=== PATIENT | female | born 1980 | race American Indian/Alaskan Native ===

== ENCOUNTER 2016-11-25 08:32 | Emergency (ER) | payer SELFPAY ==
[2016-11-25 12:32] LABS: Bacteria,Urine 1+ /HPF (Negative); Bilirubin,Urine NEG (Negative); Blood,Urine MOD (Negative); Ketones,Urine NEG (Negative); Leukocyte Esterase,Urine NEG (Negative); Mucus,Urine FEW /HPF; Nitrite,Urine NEG (Negative); Protein,Urine <15 mg/dL mg/dL (Negative); Urobilinogen,Urine < 2.0 mg/dL (<2.0)
--- NOTE | 2016-11-25 12:37 | Emergency Department Report ---
HPI - General Chief Complaint: Abdominal Pain Time Seen by Provider: 11/25/16 11:38 - HPI HPI: Patient with abdominal cramping, constipation for the past 3 weeks. Has been taking [id number] medication without relief. Patient also complained of runny nose, cough, feeling congested. Took some NyQuil and now feeling dizzy, weak. Patient denies any fever, chills, night sweats. Patient states her menstrual cycle have been regular and she had one this month. 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 - Surgical History Past Surgical History?: Yes Additional Surgical History: R knee - Social History Smoking Status: Former Smoker Substance Use Type: Alcohol - Medications Home Medications: Home Medications Medication Instructions Recorded Confirmed Last Taken Type Clindamycin [Clindamycin CAP] mg PO BID 07/02/15 Unknown History Nitrofurantoin [place]/M-Cryst 100 mg PO Q12HR 07/02/15 07/02/15 Unknown History [Macrobid CAP] Ondansetron [Zofran Odt] mg PO BID 07/02/15 Unknown History Ferrous Gluconate [Fergon 325 MG 325 mg PO BID #10 tablet 07/07/15 Unknown Rx tab] Sulfamethoxazole/Trimethoprim 1 each PO BID #10 tablet 07/07/15 Unknown Rx [Bactrim DS TAB] Dicyclomine [Bentyl] 10 mg PO QID #20 capsule 11/25/16 Unknown Rx ED Review of Systems ROS: Stated complaint: ABD PAIN Other details as noted in HPI Comment: All other systems reviewed and negative Respiratory: no symptoms reported Gastrointestinal: abdominal pain, other (constipation) Physical Exam - Physical Exam Vital Signs: Vital Signs 11/25/16 11/25/16 08:42 12:04 Temperature 98.4 F Pulse Rate 73 Respiratory 18 18 Rate Blood Pressure 137/86 O2 Sat by Pulse 99 Oximetry Physical Exam: Physical Exam: - General Limitations: No Limitations General appearance: alert, in no apparent distress - Head Head exam: Present: atraumatic, normocephalic - Eye Eye exam: Present: normal appearance - ENT ENT exam: Present: mucous membranes moist - Neck Neck exam: Present: normal inspection - Respiratory Respiratory exam: Present: normal lung sounds bilaterally. Absent: respiratory distress - Cardiovascular Cardiovascular Exam: Present: normal rhythm, tachycardia. Absent: systolic murmur, diastolic murmur, rubs, gallop - GI/Abdominal GI/Abdominal exam: Present: soft, normal bowel sounds - Extremities Exam Extremities exam: Present: normal inspection - Back Exam Back exam: Present: normal inspection - Neurological Exam Neurological exam: Present: alert, oriented X3, - Skin Skin exam: Present: warm, dry, intact, normal color. Absent: rash ED Course Vital Signs 11/25/16 11/25/16 08:42 12:04 Temperature 98.4 F Pulse Rate 73 Respiratory 18 18 Rate Blood Pressure 137/86 O2 Sat by Pulse 99 Oximetry Critical care attestation.: If time is entered above; I have spent that time in minutes in the direct care of this critically ill patient, excluding procedure time. ED Disposition Clinical Impression: Constipation Qualifiers: Constipation type: other constipation type Qualified Code(s): K59.09 - Other constipation URI (upper respiratory infection) Qualifiers: URI type: unspecified viral URI Qualified Code(s): J06.9 - Acute upper respiratory infection, unspecified; B97.89 - Other viral agents as the cause of diseases classified elsewhere Disposition: DC-01 TO HOME OR SELFCARE Is pt being admited?: No Does the pt Need Aspirin: No Condition: Stable Instructions: Abdominal Pain (ED) Prescriptions: Dicyclomine [Bentyl] 10 mg PO QID #20 capsule Referrals: PRIMARY CARE, [Primary Care Provider] - 3-5 Days
[2016-11-25 13:11] VITALS: BP 132/90
== END 2016-11-25 13:10 | disposition home or self-care (01) ==
LOC: ED 08:32
DX: J06.9 Acute upper respiratory infection, unspecified (principal); B97.89 Other viral agents as the cause of diseases classified elsewhere; K59.00 Constipation, unspecified
CPT/HCPCS: 81001; 81025

== ENCOUNTER 2017-01-12 17:19 | Emergency (ER) | payer SELFPAY ==
[2017-01-12 17:33] VITALS: BP 128/80
[2017-01-12 18:21] LABS: Hematocrit 35.4 % (30.3-42.9); Hemoglobin 11.8 gm/dl (10.1-14.3); Mean Corpuscular HGB Conc 33 % (30-34); Mean Corpuscular Hemoglobin 29 pg (28-32); Mean Corpuscular Volume 86 fl (79-97); Platelet Count 266 K/mm3 (140-440); Red Blood Count 4.11 M/mm3 (3.65-5.03); Red Cell Distribution Width 14.2 % (13.2-15.2); White Blood Count 5.1 K/mm3 (4.5-11.0)
[2017-01-12 18:25] LABS: Bilirubin,Urine NEG (Negative); Blood,Urine MOD (Negative); Ketones,Urine NEG (Negative); Leukocyte Esterase,Urine NEG (Negative); Mucus,Urine FEW /HPF; Nitrite,Urine NEG (Negative); Protein,Urine <15 mg/dL mg/dL (Negative); Urobilinogen,Urine < 2.0 mg/dL (<2.0)
[2017-01-12 19:14] LABS: Basophils % (Manual) 0 % (0.0-1.8); Blastocytes % (Manual) 0 %
[2017-01-12 19:15] LABS: Anisocytosis 1+; Elliptocytes Few
[2017-01-12 19:16] LABS: Diff Status Complete
--- NOTE | 2017-01-12 21:01 | Emergency Department Report ---
ED General Adult HPI - General Chief complaint: Vaginal Bleeding Stated complaint: VAGINAL BLEEDING Time Seen by Provider: 01/12/17 20:38 Source: patient Mode of arrival: Ambulatory Limitations: No Limitations - History of Present Illness Initial comments: 36yo female her during thelast day of her menstrual cycle c/o of not feeling well. she feels that her menstrual cycle is heavy since giving in March . She is her on the last dsy of her menstrual cycle, it was a heavy cycle but this is the last day. She was given a script vitamins when she was last here but the pharmacy in stock. her child has been in [place] since with family members did not have these -: days(s) (7) Radiation: non-radiation Severity scale (0 -10): 0 Associated Symptoms: denies other symptoms - Related Data Home Medications Medication Instructions Recorded Confirmed Last Taken Clindamycin [Clindamycin CAP] mg PO BID 07/02/15 Unknown Nitrofurantoin [place]/M-Cryst 100 mg PO Q12HR 07/02/15 07/02/15 Unknown [Macrobid CAP] Ondansetron [Zofran Odt] mg PO BID 07/02/15 Unknown Previous Rx's Medication Instructions Recorded Last Taken Type Ferrous Gluconate [Fergon 325 MG 325 mg PO BID #10 tablet 07/07/15 Unknown Rx tab] Sulfamethoxazole/Trimethoprim 1 each PO BID #10 tablet 07/07/15 Unknown Rx [Bactrim DS TAB] Dicyclomine [Bentyl] 10 mg PO QID #20 capsule 11/25/16 Unknown Rx Ferrous Sulfate/Vit C/FA (Nf) 1 each PO QAM #30 tablet.er 01/12/17 Unknown Rx [Folitab 500 (Nf)] Vit B Comp No.3/Folic/C/Biotin 1 each PO QPM #30 tablet 01/12/17 Unknown Rx [Nephro-Selvin Rx Tablet] Allergies Allergy/AdvReac Type Severity Reaction Status Date / Time metronidazole [From Flagyl] AdvReac Unknown Verified 01/12/17 17:26 ED Review of Systems ROS: Stated complaint: VAGINAL BLEEDING Other details as noted in HPI Constitutional: denies: chills, fever Eyes: denies: eye pain, eye discharge, vision change ENT: denies: ear pain, throat pain Respiratory: denies: cough, shortness of breath, wheezing Cardiovascular: denies: chest pain, palpitations Endocrine: no symptoms reported Gastrointestinal: denies: abdominal pain, nausea, diarrhea Genitourinary: denies: urgency, dysuria, discharge Musculoskeletal: denies: back pain, joint swelling, arthralgia Skin: denies: rash, lesions Neurological: denies: headache, weakness, paresthesias Psychiatric: depression, other (depression). denies: anxiety Hematological/Lymphatic: denies: easy bleeding, easy bruising ED Past Medical Hx - Past Medical History Hx Seizures: Yes (epilepsy) Additional medical history: Prior transfusion for her dysfunctional uterine bleeding - Surgical History Additional Surgical History: R knee - Social History Smoking Status: Never Smoker Substance Use Type: None - Medications Home Medications: Home Medications Medication Instructions Recorded Confirmed Last Taken Type Clindamycin [Clindamycin CAP] mg PO BID 07/02/15 Unknown History Nitrofurantoin [place]/M-Cryst 100 mg PO Q12HR 07/02/15 07/02/15 Unknown History [Macrobid CAP] Ondansetron [Zofran Odt] mg PO BID 07/02/15 Unknown History Ferrous Gluconate [Fergon 325 MG 325 mg PO BID #10 tablet 07/07/15 Unknown Rx tab] Sulfamethoxazole/Trimethoprim 1 each PO BID #10 tablet 07/07/15 Unknown Rx [Bactrim DS TAB] Dicyclomine [Bentyl] 10 mg PO QID #20 capsule 11/25/16 Unknown Rx Ferrous Sulfate/Vit C/FA (Nf) 1 each PO QAM #30 tablet.er 01/12/17 Unknown Rx [Folitab 500 (Nf)] Vit B Comp No.3/Folic/C/Biotin 1 each PO QPM #30 tablet 01/12/17 Unknown Rx [Nephro-Selvin Rx Tablet] ED Physical Exam - General Limitations: No Limitations General appearance: alert, in no apparent distress - Head Head exam: Present: atraumatic, normocephalic - Eye Eye exam: Present: normal appearance, EOMI. Absent: scleral icterus, conjunctival injection - ENT ENT exam: Present: mucous membranes moist - Neck Neck exam: Present: normal inspection - Respiratory Respiratory exam: Present: normal lung sounds bilaterally. Absent: respiratory distress - Cardiovascular Cardiovascular Exam: Present: regular rate, normal rhythm. Absent: systolic murmur, diastolic murmur, rubs, gallop - GI/Abdominal GI/Abdominal exam: Present: soft, normal bowel sounds - Rectal Rectal exam: Present: deferred - Extremities Exam Extremities exam: Present: normal inspection - Back Exam Back exam: Present: normal inspection - Neurological Exam Neurological exam: Present: alert, oriented X3 - Psychiatric Psychiatric exam: Present: depressed, flat affect - Skin Skin exam: Present: warm, dry, intact, normal color. Absent: rash ED Course Vital Signs 01/12/17 17:27 Temperature 99.5 F Pulse Rate 70 Respiratory 18 Rate Blood Pressure 128/80 O2 Sat by Pulse 98 Oximetry - Reevaluation(s) Reevaluation #1: 01/12/17 21:23 she wishes to leave and she will return . she is not suicidal or homocidal thus i will discharge her. ED Medical Decision Making - Lab Data Result diagrams: 01/12/17 17:47 - Medical Decision Making this is probably post- depression becuase she is really not bleeding and has flat affect. Since he child was born, she has not seen the child who lives with relatives in [place]. pt is not suicidal or homocidal and wishes to leave thus I will discharge. she will return . Critical care attestation.: If time is entered above; I have spent that time in minutes in the direct care of this critically ill patient, excluding procedure time. ED Disposition Clinical Impression: Post depression Menorrhagia Qualifiers: Menorrahagia type: with regular cycle Qualified Code(s): N92.0 - Excessive and frequent menstruation with regular cycle Disposition: DC-01 TO HOME OR SELFCARE Is pt being admited?: No Does the pt Need Aspirin: No Condition: Stable Instructions: Depression (ED), Menorrhagia (ED) Prescriptions: Ferrous Sulfate/Vit C/FA (Nf) [Folitab 500 (Nf)] 1 each PO QAM #30 tablet.er Vit B Comp No.3/Folic/C/Biotin [Nephro-Selvin Rx Tablet] 1 each PO QPM #30 tablet Referrals: PRIMARY CARE, [Primary Care Provider] - 3-5 Days Time of Disposition: 21:25
== END 2017-01-12 21:45 | disposition home or self-care (01) ==
LOC: ED 17:19
DX: F32.9 Major depressive disorder, single episode, unspecified (principal); N92.0 Excessive and frequent menstruation with regular cycle; G40.909 Epilepsy, unspecified, not intractable, without status epilepticus; Z88.8 Allergy status to other drugs, medicaments and biological substances
CPT/HCPCS: 36415; 81001; 84702; 85007; 85025; 86850; 86900; 86901; 99283

== ENCOUNTER 2018-03-29 13:49 | Outpatient (CLI) | payer MEDICAID ==
[2018-03-29] MEDS ORDERED: LACTATED RINGERS 500 ML IV ONE (15:00)
[2018-03-29 15:02] LABS: Amphetamine Screen,Urine PRESUMPTIVE NEGATIVE; Benzodiazepines Screen,Urine PRESUMPTIVE NEGATIVE; Cannabinoid Screen,Urine PRESUMPTIVE NEGATIVE; Cocaine Screen,Urine PRESUMPTIVE NEGATIVE; Methadone Screen,Urine PRESUMPTIVE NEGATIVE; Opiate Screen,Urine PRESUMPTIVE NEGATIVE
[2018-03-29 15:04] LABS: Bacteria,Urine 2+ /HPF (Negative); Bilirubin,Urine NEG (Negative); Blood,Urine SM (Negative); Color,Urine Yellow (Yellow); Mucus,Urine FEW /HPF
[2018-03-29 17:02] VITALS: BP 130/77
--- NOTE | 2018-03-29 20:00 | Vascular Lab Report ---
FINAL REPORT EXAM: VL VENOUS DUPLEX LE BILAT HISTORY: leg pain at 36wks gestation TECHNIQUE: 37-year-old female with bilateral lower extremity pain, 36 weeks Comparison: None FINDINGS: Longitudinal and transverse grayscale, color, and Doppler sonographic images were performed from the bilateral groins to the infrapopliteal regions. The venous system is anechoic and fully compressible at all levels. Normal respiratory variability an d augmentation. No popliteal cyst. Greater saphenous veins are unremarkable. IMPRESSION: No evidence for acute deep venous thrombosis bilateral lower extremities from the groins to the popli teal regions.
== END 2018-03-29 20:56 | disposition home or self-care (01) ==
LOC: TRG 13:49
PROVIDERS: ATTEND Obstetrics & Gynecology
DX: O47.03 False labor before 37 completed weeks of gestation, third trimester (principal); Z3A.36 36 weeks gestation of pregnancy; Z87.891 Personal history of nicotine dependence
CPT/HCPCS: 59025; 80307; 81001; 93970